=== PATIENT | female | born 1945 | race African-American/Black ===

== ENCOUNTER 2023-10-03 11:38 | Emergency (ER) | payer BC ==
[~2023-10-03] VITALS: Ht 175.3 cm; Wt 57.0 kg
[2023-10-03 11:59] VITALS: O2SAT 100
[2023-10-03 13:09] LABS: BASOPHILS % 0.9 % (0.0-2.0); EOSINOPHILS % 2.7 % (0.0-5.0); HEMATOCRIT. 37.7 % (36.0-48.0); HEMOGLOBIN. 12.2 g/dL (12.0-16.0); MEAN CORPUSCULAR HEMOGLOBIN 31.5 pg (28.0-32.0); MEAN CORPUSCULAR HGB CONC 32.2 g/dL (31.0-37.0); MEAN CORPUSCULAR VOLUME 97.6 fL (81.0-99.0); MEAN PLATELET VOLUME 6.7 fl (7.4-10.4); MONOCYTES % 8.6 % (2.0-8.0); NEUTROPHILS % 74.8 % (40.0-76.0); PLATELET 222 x1000/uL (130-400); RED BLOOD CELL COUNT 3.86 mill/uL (4.2-5.4); RED CELL DISTRIBUTION WIDTH 13.8 % (11.6-14.6); WHITE BLOOD COUNT 4.8 x1000/uL (4.5-11.0)
[2023-10-03 13:15] LABS: POTASSIUM 3.8 mEq/L (3.5-5.1)
[2023-10-03 13:16] LABS: CALCIUM 9.5 mg/dL (8.7-10.4)
[2023-10-03 13:20] LABS: INR 0.9; PARTIAL THROMBOPLASTIN TIME 23.5 sec (23.4-31.0); PROTHROMBIN TIME 10.5 sec (9.6-11.0)
[2023-10-03 13:21] LABS: CREATININE 1.1 mg/dL (0.6-1.0)
[2023-10-03 16:15] VITALS: BP 162/61; PULSE 68; RESP 18; TEMP 36.78072; O2SAT 99
== END 2023-10-03 16:16 | disposition home or self-care (01) ==
LOC: ER 11:38
DX: I73.9 Peripheral vascular disease, unspecified (principal)
CPT/HCPCS: 36415; 71045; 80048; 83880; 85025; 86850; 86900; 93923; 93970; 99284

== ENCOUNTER 2024-11-05 14:33 | Inpatient (IN) | payer MEDICAID ==
[~2024-11-05] VITALS: Ht 165.1 cm; Wt 56.2 kg
[~2024-11-05 14:33] MED LIST: AMOX1TAB16 MT; CEFTRIAXONE 1GM/50ML 50 ML IV SCH; CLOT15CR5 TOP; HYDR-4001 PO; METF-414 MT; SULF1TAB48 MT
[2024-11-05 14:48] VITALS: O2SAT 99
[2024-11-05 16:19] LABS: BASOPHILS % 0.9 % (0.0-2.0); EOSINOPHILS % 1.6 % (0.0-5.0); HEMATOCRIT. 35.1 % (36.0-48.0); HEMOGLOBIN. 11.5 g/dL (12.0-16.0); LYMPHOCYTES % 15.9 % (20.0-50.0); MEAN PLATELET VOLUME 7.0 fl (7.4-10.4); MONOCYTES % 10.4 % (2.0-8.0); NEUTROPHILS % 71.2 % (40.0-76.0); PLATELET 228 x1000/uL (130-400); RED BLOOD CELL COUNT 3.63 mill/uL (4.2-5.4); RED CELL DISTRIBUTION WIDTH 15.2 % (11.6-14.6)
[2024-11-05 16:35] LABS: CREATININE 1.2 mg/dL (0.6-1.0); UREA NITROGEN BLOOD 19.0 mg/dL (9-23)
[2024-11-05] MEDS ORDERED: FUROSEMIDE 40MG/4ML VIAL IVP ONE (17:00)
[2024-11-05 17:30] LABS: CLARITY URINE CLEAR (CLEAR); COLOR URINE YELLOW (YELLOW); GLUCOSE URINE NEGATIVE (NEGATIVE); KETONES URINE NEGATIVE (NEGATIVE); LEUKOCYTE ESTERASE URINE NEGATIVE (NEGATIVE); NITRITE URINE NEGATIVE (NEGATIVE); OCCULT BLOOD URINE NEGATIVE (NEGATIVE); PH URINE 5.5 (4.5-8.0); PROTEIN URINE TRACE (NEGATIVE); SPECIFIC GRAVITY URINE 1.011 (1.005-1.030); UROBILINOGEN URINE 0.2 E.U./dL (0.2-1.0)
[2024-11-05 17:38] LABS: BACTERIA URINE 2+; RBC URINE 0-2 /hpf (0-2); SQUAMOUS EPITHELIAL CELL URINE 1+ /lpf (RARE/1+); WBC URINE 0-2 /hpf (0-2); YEAST URINE NONE SEEN
[2024-11-05 17:39] LABS: TROPONIN I HIGH SENSITIVITY 5 ng/L (3.0-34)
[2024-11-05] MEDS: FUROSEMIDE 40MG/4ML VIAL IVP SCH (19:14)
[2024-11-05] MEDS: CEFAZOLIN 1000MG PREMIX 50 ML IV ONE (19:14)
[2024-11-05] MEDS ORDERED: HYDROCODONE/ACETAMINOPHEN 5/325MG TABLET PO PRN (23:15)
[2024-11-05] MEDS ORDERED: ACETAMINOPHEN 325MG TABLET PO PRN (23:15)
[2024-11-05] MEDS ORDERED: ZOLPIDEM TARTRATE 5MG TABLET PO PRN (23:15)
[2024-11-05] MEDS ORDERED: MORPHINE SULFATE 4 MG/ML INJ (FOR IV/IM USE) IV PRN (23:15)
[2024-11-05] MEDS ORDERED: ONDANSETRON HCL 4MG/2ML INJ IV PRN (23:15)
[2024-11-05] MEDS ORDERED: DEXTROSE 50% WATER 50ML SYRINGE IV PRN (23:15)
[2024-11-05] MEDS ORDERED: MAGNESIUM/ALUMINUM HYDROXIDE/SIMETHICONE 30ML UDC PO PRN (23:15)
[2024-11-05] MEDS ORDERED: CLONIDINE 0.1MG TABLET PO PRN (23:15)
[2024-11-05 23:38] LABS: TROPONIN I HIGH SENSITIVITY 6 ng/L (3.0-34)
[2024-11-06] VITALS (7 sets, daily range): BP systolic 104–145; BP diastolic 55–75; PULSE 56–67; RESP 16–18; TEMP 35.9–36.9184; O2SAT 97–100
[2024-11-06] MEDS: SODIUM CHLORIDE 0.9% 1,000 ML IV SCH (00:48)
[2024-11-06] MEDS: VANCOMYCIN 1.5GM PMX (XELLIA) 300 ML IV SCH (00:48)
[2024-11-06] MEDS: CEFTRIAXONE 1GM/50ML 50 ML IV SCH (03:32)
[2024-11-06] MEDS: INSULIN LISPRO 100 UNITS/ML SUBCUT SCH (06:10)
[2024-11-06] MEDS: BLOOD SUGAR DIAGNOSTIC STRIP TEST SCH (06:10)
[2024-11-06 06:27] LABS: BASOPHILS % 0.6 % (0.0-2.0); EOSINOPHILS % 3.1 % (0.0-5.0); HEMATOCRIT. 34.6 % (36.0-48.0); HEMOGLOBIN. 11.3 g/dL (12.0-16.0); LYMPHOCYTES % 22.1 % (20.0-50.0); MEAN PLATELET VOLUME 8.0 fl (7.4-10.4); MONOCYTES % 11.1 % (2.0-8.0); NEUTROPHILS % 63.1 % (40.0-76.0); PLATELET 197 x1000/uL (130-400); RED BLOOD CELL COUNT 3.59 mill/uL (4.2-5.4); RED CELL DISTRIBUTION WIDTH 15.4 % (11.6-14.6)
[2024-11-06 06:51] LABS: CREATININE 1.1 mg/dL (0.6-1.0); UREA NITROGEN BLOOD 13.0 mg/dL (9-23)
[2024-11-06] MEDS: PANTOPRAZOLE SODIUM 40 MG/VIAL IV SCH (09:35)
[2024-11-06] MEDS: ENOXAPARIN 40MG/0.4ML SYR SUBCUT SCH (09:35)
[2024-11-06] MEDS ORDERED: NALOXONE HCL 0.4MG/ML VIAL IV PRN (10:15)
[2024-11-06 11:38] LABS: *AMPHETAMINES SCREEN URINE NEGATIVE (NEGATIVE)
[2024-11-06 11:39] LABS: *BARBITURATES SCREEN URINE NEGATIVE (NEGATIVE); *BENZODIAZEPINES SCREEN URINE NEGATIVE (NEGATIVE); *COCAINE SCREEN URINE PRESUMPTIVE POSITIVE (NEGATIVE); CANNABINOID URINE SCREEN NEGATIVE (NEGATIVE); ECSTASY MDMA SCREEN URINE NEGATIVE (NEGATIVE); METHADONE URINE SCREEN NEGATIVE (NEGATIVE); OPIATES URINE SCREEN NEGATIVE (NEGATIVE); PHENCYCLIDINE URINE SCREEN NEGATIVE (NEGATIVE)
[2024-11-06] MEDS: VANCOMYCIN 750MG/150ML (BAXTER) IV SCH (20:59)
[2024-11-07] VITALS: BP 110/51; PULSE 61; RESP 18; TEMP 36.4; O2SAT 100
[2024-11-07 04:00] VITALS: BP 123/58; PULSE 58; RESP 18; TEMP 36.4; O2SAT 100
[2024-11-07 08:00] VITALS: BP 127/56; PULSE 69; RESP 18; TEMP 36.7; O2SAT 99
[2024-11-07 10:01] LABS: BASOPHILS % 1.2 % (0.0-2.0); EOSINOPHILS % 3.4 % (0.0-5.0); HEMATOCRIT. 34.0 % (36.0-48.0); HEMOGLOBIN. 11.0 g/dL (12.0-16.0); LYMPHOCYTES % 28.5 % (20.0-50.0); MEAN PLATELET VOLUME 7.6 fl (7.4-10.4); MONOCYTES % 10.1 % (2.0-8.0); NEUTROPHILS % 56.8 % (40.0-76.0); PLATELET 232 x1000/uL (130-400); RED BLOOD CELL COUNT 3.52 mill/uL (4.2-5.4); RED CELL DISTRIBUTION WIDTH 15.3 % (11.6-14.6)
[2024-11-07 10:38] LABS: CREATININE 1.2 mg/dL (0.6-1.0); UREA NITROGEN BLOOD 21.0 mg/dL (9-23)
[2024-11-07] MEDS ORDERED: AMOX1TAB16 MT (11:24)
[2024-11-07] MEDS ORDERED: SULF1TAB48 MT (11:24)
[2024-11-07] MEDS ORDERED: HYDR-4001 PO (11:24)
[2024-11-07] MEDS ORDERED: CLOT15CR5 TOP (11:24)
[2024-11-07 12:00] VITALS: BP 108/51; PULSE 58; RESP 18; TEMP 36.7; O2SAT 99
[2024-11-07 16:00] VITALS: BP 125/58; PULSE 69; RESP 18; TEMP 36.7; O2SAT 98
[2024-11-07 20:00] VITALS: BP 144/88; PULSE 64; RESP 18; TEMP 35.9; O2SAT 99
[2024-11-08 00:08] VITALS: BP 123/55; PULSE 64; RESP 18; TEMP 36.2; O2SAT 96
[2024-11-08 04:00] VITALS: BP 113/55; PULSE 84; RESP 18; TEMP 36.3; O2SAT 96
[2024-11-08 06:07] LABS: BASOPHILS % 1.0 % (0.0-2.0); EOSINOPHILS % 3.6 % (0.0-5.0); HEMATOCRIT. 33.0 % (36.0-48.0); HEMOGLOBIN. 10.8 g/dL (12.0-16.0); LYMPHOCYTES % 31.7 % (20.0-50.0); MEAN PLATELET VOLUME 7.4 fl (7.4-10.4); MONOCYTES % 12.6 % (2.0-8.0); NEUTROPHILS % 51.1 % (40.0-76.0); PLATELET 227 x1000/uL (130-400); RED BLOOD CELL COUNT 3.46 mill/uL (4.2-5.4); RED CELL DISTRIBUTION WIDTH 15.2 % (11.6-14.6)
[2024-11-08 06:43] LABS: CREATININE 1.4 mg/dL (0.6-1.0); UREA NITROGEN BLOOD 20.0 mg/dL (9-23)
[2024-11-08 08:00] VITALS: BP 116/50; PULSE 71; RESP 18; TEMP 37; O2SAT 100
[2024-11-08 12:00] VITALS: BP 140/65; PULSE 63; RESP 18; TEMP 36.6; O2SAT 100
[2024-11-08 14:42] VITALS: BP 140/65; PULSE 63; RESP 18; TEMP 97.9
== END 2024-11-08 16:15 | disposition home or self-care (01) | DRG 603 ==
LOC: ER 14:56 → 5WST 22:15 → EDBEDREQ 22:30 → EDBEDREQTM 22:30 → ENRESERV 22:37
PROVIDERS: ADMIT Internal Medicine; ATTEND Internal Medicine
DX: L03.115 Cellulitis of right lower limb (principal); I87.2 Venous insufficiency (chronic) (peripheral); D64.9 Anemia, unspecified; I50.9 Heart failure, unspecified; E11.9 Type 2 diabetes mellitus without complications; J44.9 Chronic obstructive pulmonary disease, unspecified; D72.819 Decreased white blood cell count, unspecified; I87.8 Other specified disorders of veins; N28.9 Disorder of kidney and ureter, unspecified; F14.10 Cocaine abuse, uncomplicated; F19.90 Other psychoactive substance use, unspecified, uncomplicated; Z79.84 Long term (current) use of oral hypoglycemic drugs
CPT/HCPCS: 36415; 71045; 80048; 80202; 80305; 81003; 82962; 83605; 83880; 84145; 84443; 84484; 85025; 93970; 97116; 97162; 99285; A4606; J0690; J0696; J1650; J1815; J1938; J2470; J3373